=== PATIENT | female | born 1995 | race Caucasian/White ===

== ENCOUNTER 2017-09-13 19:42 | Emergency (ER) | payer BC, OTHER ==
[2017-09-13 20:11] VITALS: O2SAT 98
[2017-09-13] MEDS ORDERED: TORAdol 30 mg Injection IV ONE (20:36)
[2017-09-13] MEDS ORDERED: Zofran 4 MG/2 ML VIAL IV ONE (20:36)
[2017-09-13] MEDS ORDERED: Pepcid 20 MG VIAL IV ONE ×2 (20:36→20:53)
[2017-09-13] MEDS ORDERED: Sodium Chloride 0.9% 1000 ML 1,000 ML IV STA (20:36)
[2017-09-13] MEDS ORDERED: Ativan 2 MG/1 ML VIAL IV ONE (20:39)
--- NOTE | 2017-09-13 20:44 | ERPHSYRPT ---
- History of Present Illness Time Seen by Provider: 09/13/17 20:31 Historian: patient Exam Limitations: no limitations Patient Subjective Stated Complaint: severe abdominal pain x 1 hour has been being treated for the same for a long time.. has had same problems her whole life. has had pain with urination for a long time too Triage Nursing Assessment: alert and crying and hyperventilating. diffuse pain after eating corn dogs and mac and cheese. non radiating pain, diffuse. abdomen soft. has had vburning with urinating but has had for a long time. ch an appointment with a gastro in November for this problems. Physician History: Pt started c/o epigastric pain, nausea for about one hour, diarrhea and urinary burning. She states, she has been battling with similar problems in her whole life. She denies any surgery or endoscopy, denies being , currently having her regular menstrual period. She is acting very anxious, hyperventilating, but no sign of dyspnea. Timing/Duration: hour(s) (1) Activities at Onset: none Quality: cramping, sharpness Abdominal Pain Onset Location: epigastric Pain Radiation: no radiation Severity of Pain-Max: severe Severity of Pain-Current: severe Modifying Factors: Improves With: nothing Associated Symptoms: diarrhea, nausea Previous symptoms: same symptoms as today - Review of Systems Constitutional: No Symptoms Respiratory: No Symptoms Cardiac: No Symptoms Abdominal/Gastrointestinal: Abdominal Pain, Nausea, Diarrhea Genitourinary Symptoms: Dysuria, Frequency All Other Systems: Reviewed and Negative - Past Medical History Pertinent Past Medical History: Yes GI Medical History: Other History: Other Other Medical History: abdominal pain, urinary - Past Surgical History Past Surgical History: No - Social History Smoking Status: Never smoker Exposure to second hand smoke: No Drug Use: none Patient Lives Alone: No - Female History Hx Now: No - Nursing Vital Signs Nursing Vital Signs: Initial Vital Signs Temperature 98.3 F 09/13/17 19:54 Pulse Rate 92 H 09/13/17 19:54 Respiratory Rate 28 H 09/13/17 19:54 Blood Pressure 117/74 09/13/17 19:54 O2 Sat by Pulse Oximetry 98 09/13/17 19:54 Pain Scale Pain Intensity 5 - Physical Exam General Appearance: mild distress Eye Exam: eyes nml inspection Ears, Nose, Throat Exam: normal ENT inspection, moist mucous membranes Neck Exam: normal inspection, non-tender, supple, No JVD Respiratory Exam: normal breath sounds, lungs clear, airway intact, No chest tenderness, No respiratory distress Cardiovascular Exam: regular rate/rhythm, normal heart sounds, normal peripheral pulses, No murmur Gastrointestinal/Abdomen Exam: soft, normal bowel sounds, tenderness (diffuse, upper abdomen), No distention, No mass, No guarding, No ecchymosis, No pulsatile mass, No rebound, No hernia Back Exam: normal inspection, No CVA tenderness Extremity Exam: normal inspection, No calf tenderness, No akhil's sign, No pedal edema Neurologic Exam: alert, oriented x 3, cooperative, other (anxious) Skin Exam: normal color, warm, dry, No rash Lymphatic Exam: No adenopathy SpO2 Interpretation: normal SpO2: 98 Oxygen Delivery: Room Air - Course Nursing assessment & vital signs reviewed: Yes EKG Interpreted by Me: RATE (95/min), NORMAL AXIS, NORMAL INTERVALS, Non- specific ST Changes - CT Exams Abdomen/Pelvis CT Interpretation: Negative, Tele-radiologist Report Ordered Tests: Active Orders 24 hr Category Date Time Status EKG-ER Only STAT Care 09/13/17 20:36 Active EKG-ER Only STAT Care 09/13/17 23:00 Active IV Insertion STAT Care 09/13/17 20:36 Active NPO (ED) STAT Care 09/13/17 20:36 Active ABDOMEN AND PELVIS W CONTRAST [CT] Routine Exams 09/13/17 20:38 Taken CHEST 1 VIEW (PORTABLE) Stat Exams 09/13/17 20:38 Taken AMYLASE Stat Lab 09/13/17 20:55 Completed CBC W DIFF Stat Lab 09/13/17 20:55 Completed CMP Stat Lab 09/13/17 20:55 Completed CULTURE,URINE Stat Lab 09/13/17 20:37 Received HCG QUALITATIVE,SERUM Stat Lab 09/13/17 20:55 Completed LIPASE Stat Lab 09/13/17 20:55 Completed Lactic Acid Stat Lab 09/13/17 20:50 Completed Lactic Acid Stat Lab 09/13/17 23:25 Results TROPONIN Q3H Lab 09/13/17 20:55 Completed TROPONIN Q3H Lab 09/13/17 23:45 Completed TROPONIN Q3H Lab 09/14/17 02:45 Ordered TROPONIN Q3H Lab 09/14/17 05:45 Ordered TROPONIN Q3H Lab 09/14/17 08:45 Ordered UA W/ MICROSCOPIC Stat Lab 09/13/17 20:37 Completed Urine Triage Profile Stat Lab 09/13/17 20:37 Completed Medication Summary Discontinued Medications Generic Name Dose Route Start Last Admin Trade Name Jad PRN Reason Stop Dose Admin Famotidine 20 mg 09/13/17 20:36 09/13/17 21:04 Pepcid 20 Mg Vial IV 09/13/17 20:37 20 mg STAT ONE Administration Famotidine Confirm 09/13/17 20:53 Pepcid 20 Mg Vial Administered 09/13/17 20:54 Dose 20 mg IV .STK-MED ONE Fentanyl Citrate 50 mcg 09/13/17 23:29 09/13/17 23:38 Sublimaze 100 Mcg/2 Ml IV 09/13/17 23:30 50 mcg STAT ONE Administration Fentanyl Citrate Confirm 09/13/17 23:36 Sublimaze 100 Mcg/2 Ml Administered 09/13/17 23:37 Dose 100 mcg .ROUTE .STK-MED ONE Sodium Chloride 1,000 mls @ 999 mls/hr 09/13/17 20:36 09/13/17 21:03 Sodium Chloride 0.9% 1000 Ml IV 09/13/17 21:36 999 mls/hr .Q1H1M STA Administration Sodium Chloride Confirm 09/13/17 20:54 Sodium Chloride 0.9% 1000 Ml Administered 09/13/17 20:55 Dose 1,000 mls @ ud .ROUTE .STK-MED ONE Ketorolac Tromethamine 30 mg 09/13/17 20:36 09/13/17 21:05 Toradol 30 Mg Injection IV 09/13/17 20:37 30 mg STAT ONE Administration Ketorolac Tromethamine Confirm 09/13/17 20:53 Toradol 30 Mg Injection Administered 09/13/17 20:54 Dose 30 mg .ROUTE .STK-MED ONE Lorazepam 0.5 mg 09/13/17 20:39 09/13/17 21:03 Ativan 2 Mg/1 Ml Vial IV 09/13/17 20:40 0.5 mg NOW ONE Administration Lorazepam Confirm 09/13/17 20:58 Ativan 2 Mg/1 Ml Vial Administered 09/13/17 20:59 Dose 2 mg .ROUTE .STK-MED ONE Ondansetron HCl 4 mg 09/13/17 20:36 09/13/17 21:05 Zofran 4 Mg/2 Ml Vial IV 09/13/17 20:37 4 mg STAT ONE Administration Ondansetron HCl Confirm 09/13/17 20:53 Zofran 4 Mg/2 Ml Vial Administered 09/13/17 20:54 Dose 4 mg .ROUTE .STK-MED ONE Lab/Rad Data: Laboratory Result Diagrams 09/13/17 20:55 09/13/17 20:55 Laboratory Results 09/13/17 09/13/17 09/13/17 Range/Units 23:45 23:25 20:55 WBC (4.0-10.5) K/mm3 RBC (4.1-5.4) M/mm3 Hgb (12.0-16.0) gm/dl Hct (35-47) % MCV (78-100) fl MCH (26-32) pg MCHC (32-36) g/dl RDW (11.5-14.0) % Plt Count (150-450) K/mm3 MPV (6-9.5) fl Gran % (36.0-66.0) % Eos # (Auto) (0-0.5) Absolute Lymphs (auto) (1.0-4.6) Absolute Monos (auto) (0.0-1.3) Lymphocytes % (24.0-44.0) % Monocytes % (0.0-12.0) % Eosinophils % (0.00-5.0) % Basophils % (0.0-0.4) % Absolute Granulocytes (1.4-6.9) Basophils # (0-0.4) Sodium (137-145) mmol/L Potassium (3.5-5.1) mmol/L Chloride (98-107) mmol/L Carbon Dioxide (22-30) mmol/L Anion Gap (5-15) MEQ/L BUN (7-17) mg/dL Creatinine (0.52-1.04) mg/dL Estimated GFR ML/MIN Glucose (74-106) mg/dL Lactic Acid 2.1 H (0.4-2.0) Calcium (8.4-10.2) mg/dL Total Bilirubin (0.2-1.3) mg/dL AST (14-36) U/L ALT (0-35) U/L Alkaline Phosphatase (38-126) U/L Troponin I < 0.012 (0.000-0.034) ng/mL Serum Total Protein (6.3-8.2) g/dL Albumin (3.5-5.0) g/dL Amylase (30-110) U/L Lipase (23-300) U/L Serum , Qual NEGATIVE (Negative) Ur Collection Type Urine Color (YELLOW) Urine Appearance (CLEAR) Urine pH (5-6) Ur Specific [place] (1.005-1.025) Urine Protein (Negative) Urine Ketones (NEGATIVE) Urine Blood (0-5) Warren/ul Urine Nitrite (NEGATIVE) Urine Bilirubin (NEGATIVE) Urine Urobilinogen (0-1) mg/dL Ur Leukocyte Esterase (NEGATIVE) Urine Microscopic RBC (0-2) /HPF Urine Microscopic WBC (0-5) /HPF Ur Epithelial Cells (FEW) /HPF Urine Bacteria (NEGATIVE) /HPF Urine Culture Reflexed (NO) Urine Glucose (NEGATIVE) mg/dL Urine Opiates Level (NEGATIVE) Ur Methadone (NEGATIVE) Urine Barbiturates (NEGATIVE) Ur Phencyclidine (PCP) (NEGATIVE) Urine Amphetamine (NEGATIVE) U Benzodiazepine Level (NEGATIVE) Urine Cocaine (NEGATIVE) Urine Marijuana (THC) (NEGATIVE) Specimen Received 09/13/17 09/13/17 09/13/17 Range/Units 20:55 20:55 20:55 WBC 9.1 (4.0-10.5) K/mm3 RBC 4.44 (4.1-5.4) M/mm3 Hgb 15.3 (12.0-16.0) gm/dl Hct 41.9 (35-47) % MCV 94.4 (78-100) fl MCH 34.5 H (26-32) pg MCHC 36.5 H (32-36) g/dl RDW 11.5 (11.5-14.0) % Plt Count 367 (150-450) K/mm3 MPV 10.5 H (6-9.5) fl Gran % 50.7 (36.0-66.0) % Eos # (Auto) 0.10 (0-0.5) Absolute Lymphs (auto) 3.43 (1.0-4.6) Absolute Monos (auto) 0.92 (0.0-1.3) Lymphocytes % 37.7 (24.0-44.0) % Monocytes % 10.1 (0.0-12.0) % Eosinophils % 1.1 (0.00-5.0) % Basophils % 0.4 (0.0-0.4) % Absolute Granulocytes 4.62 (1.4-6.9) Basophils # 0.04 (0-0.4) Sodium 144 (137-145) mmol/L Potassium 3.4 L (3.5-5.1) mmol/L Chloride 109 H (98-107) mmol/L Carbon Dioxide 19 L (22-30) mmol/L Anion Gap 19.5 H (5-15) MEQ/L BUN 11 (7-17) mg/dL Creatinine 0.69 (0.52-1.04) mg/dL Estimated GFR > 60.0 ML/MIN Glucose 97 (74-106) mg/dL Lactic Acid (0.4-2.0) Calcium 10.4 H (8.4-10.2) mg/dL Total Bilirubin 0.10 L (0.2-1.3) mg/dL AST 32 (14-36) U/L ALT 50 H (0-35) U/L Alkaline Phosphatase 113 (38-126) U/L Troponin I < 0.012 (0.000-0.034) ng/mL Serum Total Protein 7.8 (6.3-8.2) g/dL Albumin 4.7 (3.5-5.0) g/dL Amylase 74 (30-110) U/L Lipase 98 (23-300) U/L Serum , Qual (Negative) Ur Collection Type Urine Color (YELLOW) Urine Appearance (CLEAR) Urine pH (5-6) Ur Specific [place] (1.005-1.025) Urine Protein (Negative) Urine Ketones (NEGATIVE) Urine Blood (0-5) Warren/ul Urine Nitrite (NEGATIVE) Urine Bilirubin (NEGATIVE) Urine Urobilinogen (0-1) mg/dL Ur Leukocyte Esterase (NEGATIVE) Urine Microscopic RBC (0-2) /HPF Urine Microscopic WBC (0-5) /HPF Ur Epithelial Cells (FEW) /HPF Urine Bacteria (NEGATIVE) /HPF Urine Culture Reflexed (NO) Urine Glucose (NEGATIVE) mg/dL Urine Opiates Level (NEGATIVE) Ur Methadone (NEGATIVE) Urine Barbiturates (NEGATIVE) Ur Phencyclidine (PCP) (NEGATIVE) Urine Amphetamine (NEGATIVE) U Benzodiazepine Level (NEGATIVE) Urine Cocaine (NEGATIVE) Urine Marijuana (THC) (NEGATIVE) Specimen Received 09/13/17 09/13/17 09/13/17 Range/Units 20:50 20:37 20:37 WBC (4.0-10.5) K/mm3 RBC (4.1-5.4) M/mm3 Hgb (12.0-16.0) gm/dl Hct (35-47) % MCV (78-100) fl MCH (26-32) pg MCHC (32-36) g/dl RDW (11.5-14.0) % Plt Count (150-450) K/mm3 MPV (6-9.5) fl Gran % (36.0-66.0) % Eos # (Auto) (0-0.5) Absolute Lymphs (auto) (1.0-4.6) Absolute Monos (auto) (0.0-1.3) Lymphocytes % (24.0-44.0) % Monocytes % (0.0-12.0) % Eosinophils % (0.00-5.0) % Basophils % (0.0-0.4) % Absolute Granulocytes (1.4-6.9) Basophils # (0-0.4) Sodium (137-145) mmol/L Potassium (3.5-5.1) mmol/L Chloride (98-107) mmol/L Carbon Dioxide (22-30) mmol/L Anion Gap (5-15) MEQ/L BUN (7-17) mg/dL Creatinine (0.52-1.04) mg/dL Estimated GFR ML/MIN Glucose (74-106) mg/dL Lactic Acid 4.2 H (0.4-2.0) Calcium (8.4-10.2) mg/dL Total Bilirubin (0.2-1.3) mg/dL AST (14-36) U/L ALT (0-35) U/L Alkaline Phosphatase (38-126) U/L Troponin I (0.000-0.034) ng/mL Serum Total Protein (6.3-8.2) g/dL Albumin (3.5-5.0) g/dL Amylase (30-110) U/L Lipase (23-300) U/L Serum , Qual (Negative) Ur Collection Type VOID Urine Color YELLOW (YELLOW) Urine Appearance CLOUDY (CLEAR) Urine pH 6.0 (5-6) Ur Specific [place] 1.025 (1.005-1.025) Urine Protein TRACE (Negative) Urine Ketones NEGATIVE (NEGATIVE) Urine Blood 250 (0-5) Warren/ul Urine Nitrite NEGATIVE (NEGATIVE) Urine Bilirubin NEGATIVE (NEGATIVE) Urine Urobilinogen NORMAL (0-1) mg/dL Ur Leukocyte Esterase NEGATIVE (NEGATIVE) Urine Microscopic RBC 5-10 (0-2) /HPF Urine Microscopic WBC 0-2 (0-5) /HPF Ur Epithelial Cells FEW (FEW) /HPF Urine Bacteria MANY (NEGATIVE) /HPF Urine Culture Reflexed YES (NO) Urine Glucose NEGATIVE (NEGATIVE) mg/dL Urine Opiates Level NEGATIVE (NEGATIVE) Ur Methadone NEGATIVE (NEGATIVE) Urine Barbiturates NEGATIVE (NEGATIVE) Ur Phencyclidine (PCP) NEGATIVE (NEGATIVE) Urine Amphetamine NEGATIVE (NEGATIVE) U Benzodiazepine Level NEGATIVE (NEGATIVE) Urine Cocaine NEGATIVE (NEGATIVE) Urine Marijuana (THC) NEGATIVE (NEGATIVE) Specimen Received 09/13 2044 - Progress Progress: improved Progress Note: 09/14/17 00:40 Pt states,, she feels better, denies pain or nausea, repeat lactic acid is : 2.1 , troponin is negative, she is afebrile, and stable. I discussed our results with her, discharge with instructions to rest x 1-2 days, continue liquid diet, and follow up with her doctor next week, return if severe pain, vomiting or fever> 102 F. Counseled pt/family regarding: lab results, diagnosis, need for follow-up, rad results - Departure Time of Disposition: 00:42 Departure Disposition: Home Clinical Impression: Abdominal pain Qualifiers: Abdominal location: epigastric Qualified Code(s): R10.13 - Epigastric pain Condition: Stable Critical Care Time: No Referrals: TAMELA BOATENG NP [Primary Care Provider] - Instructions: Acid Reflux (Gastroesophageal Reflux Disease), Adult (DC), Acute Abdomen (Belly Pain), Adult (DC) Additional Instructions: Rest x 2-3 days, drink plenty of fluids, return if severe pain, vomiting, fever > 102 F, follow up with your physician next week! Prescriptions: PANTOPRAZOLE 40 mg Tablet [Protonix 40MG Tablet] 40 mg PO QAM #15 tab
[2017-09-13] MEDS ORDERED: TORAdol 30 mg Injection ONE (20:53)
[2017-09-13] MEDS ORDERED: Zofran 4 MG/2 ML VIAL ONE (20:53)
[2017-09-13] MEDS ORDERED: Sodium Chloride 0.9% 1000 ML 1,000 ML ONE (20:54)
[2017-09-13 20:56] LABS: Lactic Acid 4.2 (0.4-2.0)
[2017-09-13] MEDS ORDERED: Ativan 2 MG/1 ML VIAL ONE (20:58)
[2017-09-13 21:01] LABS: BASOPHIL % 0.4 % (0.0-0.4); Basophil (Absolute #) 0.04 (0-0.4); Eosinophil % 1.1 % (0.00-5.0); Granulocyte Absolute (ANC) 4.62 (1.4-6.9); Granulocytes % 50.7 % (36.0-66.0); Hematocrit 41.9 % (35-47); Hemoglobin 15.3 gm/dl (12.0-16.0); Lymphocyte (Absolute #) 3.43 (1.0-4.6); Lymphocytes % 37.7 % (24.0-44.0); Mean Cell Volume 94.4 fl (78-100); Mean Corpuscular Hemoglobin 34.5 pg (26-32); Mean Corpuscular Hgb Concent. 36.5 g/dl (32-36); Mean Platelet Volume 10.5 fl (6-9.5); Monocyte (Absolute #) 0.92 (0.0-1.3); Monocytes % 10.1 % (0.0-12.0); Platelet Count 367 K/mm3 (150-450); Red Blood Count 4.44 M/mm3 (4.1-5.4); Red Cell Distribution Width 11.5 % (11.5-14.0); White Blood Count 9.1 K/mm3 (4.0-10.5)
[2017-09-13 21:03] LABS: Appearance CLOUDY (CLEAR); Bilirubin NEGATIVE (NEGATIVE); Blood 250 Ery/ul (0-5); Glucose NEGATIVE (NEGATIVE); Ketones NEGATIVE (NEGATIVE); Leukocyte Esterase NEGATIVE (NEGATIVE); Nitrite NEGATIVE (NEGATIVE); Protein,Urine Dip TRACE (Negative); Specific Gravity 1.025 (1.005-1.025); Urobilinogen NORMAL mg/dL (0-1)
[2017-09-13 21:07] LABS: Bacteria MANY /HPF (NEGATIVE); Epithelial Cells FEW /HPF (FEW); WBC 0-2 /HPF (0-5)
[2017-09-13 21:12] LABS: Amphetamine,Urine NEGATIVE (NEGATIVE); Barbiturate,Urine NEGATIVE (NEGATIVE); Benzodiazepine,Urine NEGATIVE (NEGATIVE); Cocaine,Urine NEGATIVE (NEGATIVE); Methadone,Urine NEGATIVE (NEGATIVE); Opiate,Urine NEGATIVE (NEGATIVE); PCP,Urine NEGATIVE (NEGATIVE); THC,Urine NEGATIVE (NEGATIVE)
[2017-09-13 21:23] LABS: ALBUMIN 4.7 g/dL (3.5-5.0); ALKALINE PHOSPHATASE 113 U/L (38-126); AMYLASE 74 U/L (30-110); ANION GAP 19.5 MEQ/L (5-15); BLOOD UREA NITROGEN 11 mg/dL (7-17); CHLORIDE 109 mmol/L (98-107); Calcium 10.4 mg/dL (8.4-10.2); Carbon Dioxide 19 mmol/L (22-30); Creatinine 1 0.69 mg/dL (0.52-1.04); Glucose 97 mg/dL (74-106); LIPASE 98 U/L (23-300); Potassium 3.4 mmol/L (3.5-5.1); SGOT/AST 32 U/L (14-36); SODIUM 144 mmol/L (137-145); Total Protein 7.8 g/dL (6.3-8.2)
[2017-09-13 21:30] LABS: SGPT/ALT 50 U/L (0-35)
[2017-09-13 23:29] LABS: Lactic Acid 2.1 (0.4-2.0)
[2017-09-13] MEDS ORDERED: SUBLIMAZE 100 MCG/2 ML IV ONE (23:29)
[2017-09-13] MEDS ORDERED: SUBLIMAZE 100 MCG/2 ML ONE (23:36)
[2017-09-14 01:06] VITALS: BP 98/56; PULSE 95
--- NOTE | 2017-09-14 06:22 | XRAY ---
Indication: Abdominal pain. Nausea. Comparison: None Portable chest demonstrates normal heart and lungs. Bony thorax intact with minimal scoliosis.
--- NOTE | 2017-09-14 06:26 | XRAY ---
Indication: Epigastric pain, nausea, diarrhea, and painful voiding. Multiple contiguous axial images obtained through the abdomen and pelvis using 80 cc Isovue 370 contrast only. Comparison: None Lung bases are clear. Heart is not enlarged. Stomach is distended with fluid/fluid. Noncontrasted bowel loops appear nonobstructed. Normal appendix. Mild diffuse scattered colonic fecal debris. No free fluid/air. Subcentimeter left mid renal cortical cyst. Remaining liver, gallbladder, pancreas, spleen, adrenal glands, kidneys, ureters, bladder, uterus, and aorta appear unremarkable. No pathologic retroperitoneal lymphadenopathy. Osseous structures intact. No ventral or inguinal hernias. Impression: 1. Mild fecal stasis without obstruction. 2. Left renal cyst. 3. Remaining CT abdomen/pelvis with contrast exam is negative. Comment: Preliminary interpretation was made by [facility]. No critical discrepancy. CTDI 17.97
--- NOTE | 2017-09-16 10:11 | XRAY ---
Exam: CT of the head without IV contrast from 09/13/2017. CTDI: 70.80 Comparison: None. Indication: History of 3 petit mal seizures today, recent overdose of Vivanse and Prozac, neurologically intact, complains of dizziness. Technique: Non-IV contrast axial images were obtained through the brain. Reconstructed coronal and sagittal images were created and reviewed. Findings: The patient's head is slightly tilted in the CT gantry. The ventricles are of normal size. No focal mass effect or midline shift is seen. The haley matter-white matter interfaces are preserved. No evidence of acute intracranial bleed, subarachnoid hemorrhage, or subdural or epidural hematoma is seen. No low attenuation territorial infarct or evidence of focal brain edema is seen. The cortical sulci and basilar cisterns appear unremarkable. Structures of the posterior fossa appear unremarkable. The orbits appear unremarkable. The visualized paranasal sinuses appear clear. The mastoid air cells appear unremarkable. No fracture or other significant bone abnormality of the calvarium of the skull is seen. Impression: 1. No evidence of acute intracranial bleed or other acute intracranial finding is seen.
== END 2017-09-14 01:08 | disposition home or self-care (01) ==
LOC: ED 19:42
DX: R10.13 Epigastric pain (principal); R11.0 Nausea; R19.7 Diarrhea, unspecified; F41.9 Anxiety disorder, unspecified; R06.4 Hyperventilation
CPT/HCPCS: 36000; 36415; 70450; 71045; 74177; 80053; 80307; 81000; 82150; 83605; 83690; 84484; 84703; 85025; 87086; 93005; 96360; 96374; 96375; 96376; 99285; J1885; J2060; J2405; J3010

== ENCOUNTER 2018-04-03 16:51 | Emergency (ER) | payer BC ==
[2018-04-03] MEDS ORDERED: TORAdol 30 mg Injection IM ONE (17:21)
--- NOTE | 2018-04-03 17:21 | ERPHSYRPT ---
- History of Present Illness Time Seen by Provider: 04/03/18 17:16 Source: patient Exam Limitations: no limitations Patient Subjective Stated Complaint: states was exercising last night and fell on concrete striking right knee. now having pain to knee. Triage Nursing Assessment: ambulated to room limping on right leg. skin w/d, color normal. right knee tender. no swelling or deformity noted at this time. good pedal pulse. Physician History: The patient is a 22-year-old female with her complaining that she fell on tile on her right knee yesterday evening while doing an exercise routine. She has been taking ibuprofen and icing her knee but it still hurts to walk on it. It hurts for her to bend it. She denies numbness or tingling. Her past medical history significant for diabetes. Occurred: yesterday Reason for Fall: lost balance, fell from standing pos Injuries/Pain Location: lower extremity (right knee) Loss of Consciousness: no loss of consciousness Quality: sharpness Severity of Pain-Max: moderate Severity of Pain-Current: moderate Modifying Factors: Improves With: cold therapy, pain medication Associated Symptoms (Fall): extremity injury, trouble walking Allergies/Adverse Reactions: No Known Drug Allergies Allergy (Unverified 04/03/18 17:19) Home Medications: Metformin HCl Xr 500 mg [Glucophage XR 500 MG] 500 mg PO DAILY 04/03/18 [ History] Trazodone HCl 150 mg [Desyrel 150 MG] 150 mg PO HS 04/03/18 [History] Hx Tetanus, Diphtheria Vaccination/Date Given: No Hx Influenza Vaccination/Date Given: No Hx Pneumococcal Vaccination/Date Given: No - Review of Systems Constitutional: No Fever, No Chills Eyes: No Symptoms Ears, Nose, & Throat: No Symptoms Respiratory: No Cough, No Dyspnea Cardiac: No Chest Pain, No Edema, No Syncope Abdominal/Gastrointestinal: No Abdominal Pain, No Nausea, No Vomiting, No Diarrhea Genitourinary Symptoms: No Dysuria Musculoskeletal: Fall, Injury, Joint Pain Skin: No Rash Neurological: No Dizziness, No Focal Weakness, No Sensory Changes Psychological: No Symptoms Endocrine: No Symptoms Hematologic/Lymphatic: No Symptoms Immunological/Allergic: No Symptoms All Other Systems: Reviewed and Negative - Past Medical History Pertinent Past Medical History: Yes GI Medical History: Other History: Other Other Medical History: abdominal pain, urinary - Past Surgical History Past Surgical History: No - Social History Smoking Status: Never smoker Exposure to second hand smoke: No Drug Use: none Patient Lives Alone: No - Female History Hx Now: No (on depo) - Nursing Vital Signs Nursing Vital Signs: Initial Vital Signs Temperature 98.2 F 04/03/18 17:00 Pulse Rate 96 H 04/03/18 17:00 Respiratory Rate 16 04/03/18 17:00 Blood Pressure 117/76 04/03/18 17:00 O2 Sat by Pulse Oximetry 96 04/03/18 17:00 Pain Scale Pain Intensity 10 - [place] Coma Score Best Eye Response ([place]): (4) open spontaneously Best Verbal Response ([place]): (5) oriented Best Motor Response ([place]): (6) obeys commands Jeremiah Total: 15 - Physical Exam General Appearance: no apparent distress, alert Head Injury: no evidence of injury Eye Exam: PERRL/EOMI ENT Exam: airway nml Neck Exam: normal inspection, No tenderness Respiratory/Chest Exam: normal breath sounds, No chest tenderness, No respiratory distress Cardiovascular Exam: normal heart sounds, regular rate/rhythm Gastrointestinal Exam: soft, No tenderness, No distention, No guarding, No ecchymosis Rectal Exam: not done Back Exam: normal inspection, No vertebral tenderness Extremity Exam: limited range of motion, pain with movement, tenderness, other ( Examination of the right knee: There is no tenderness in the distal femur to palpation. There is tenderness to the proximal right lower leg to palpation. There is tenderness to palpation of the patella and surrounding area. There is mild swelling. There is limited range of motion even to passive movement of the right knee.) Neurologic Exam: alert, oriented x 3, cooperative, sensation nml, No motor deficits Skin Exam: normal color, warm, dry SpO2 Interpretation: normal SpO2: 96 Oxygen Delivery: Room Air - Radiology Exams Right Knee X-ray Interpretation: Interpreted by me, Negative, No Fracture Ordered Tests: Active Orders 24 hr Category Date Time Status KNEE (3 VIEWS) Stat Exams 04/03/18 18:22 Taken Medication Summary Discontinued Medications Generic Name Dose Route Start Last Admin Trade Name Freq PRN Reason Stop Dose Admin Ketorolac Tromethamine 60 mg 04/03/18 17:21 04/03/18 17:26 Toradol 30 Mg Injection IM 04/03/18 17:22 60 mg STAT ONE Administration Ketorolac Tromethamine Confirm 04/03/18 17:22 Toradol 30 Mg Injection Administered 04/03/18 17:23 Dose 60 mg .ROUTE .STK-MED ONE - Progress Progress: improved Progress Note: 04/03/18 19:07 given toradol 60 mg IM. Counseled pt/family regarding: rad results - Departure Time of Disposition: 19:07 Departure Disposition: Home Clinical Impression: Contusion of right knee Condition: Stable Critical Care Time: No Referrals: TAMELA BOATENG NP [Primary Care Provider] - Additional Instructions: You have a contusion to your right knee. The x-ray did not show any broken bones. Keep her knee in an Pierre wrap for comfort. Use crutches for comfort. You were given Toradol 60 mg by IM in the ER. You declined Tylenol No. 3. Take ibuprofen 800 mg every 8 hours as needed. Apply ice to the knee as needed. Follow-up next Saturday at your regular scheduled appointment.
[2018-04-03] MEDS ORDERED: TORAdol 30 mg Injection ONE (17:22)
[2018-04-03 19:27] VITALS: BP 100/70; PULSE 88; O2SAT 98
--- NOTE | 2018-04-04 09:12 | XRAY ---
Indication: Pain and clicking following fall. Comparison: None 3 views of the right knee obtained. No bony, articular, or soft tissue abnormalities.
== END 2018-04-03 19:29 | disposition home or self-care (01) ==
LOC: ED 16:51
DX: S80.01XA Contusion of right knee, initial encounter (principal); M25.561 Pain in right knee; W01.198A Fall on same level from slipping, tripping and stumbling with subsequent striking against other object, initial encounter; Y93.A9 Activity, other involving cardiorespiratory exercise; Y92.009 Unspecified place in unspecified non-institutional (private) residence as the place of occurrence of the external cause; Z79.899 Other long term (current) drug therapy
CPT/HCPCS: 73562; 96372; 99284; J1885

== ENCOUNTER 2018-08-20 15:38 | Emergency (ER) | payer BC ==
[2018-08-20 15:50] VITALS: O2SAT 98
[2018-08-20 17:08] VITALS: BP 97/67; PULSE 81
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
== END 2018-08-20 18:30 | disposition short-term general hospital (02) ==
LOC: ED 15:38
DX: T74.21XA Adult sexual abuse, confirmed, initial encounter (principal); S10.93XA Contusion of unspecified part of neck, initial encounter; Y07.59 Other non-family member, perpetrator of maltreatment and neglect
CPT/HCPCS: 99284; 99285